=== PATIENT | male | born 1975 | race Hispanic/Latino ===

== ENCOUNTER 2022-09-19 15:17 | Emergency (ER) | payer SELFPAY ==
--- OUTSIDE RECORDS SUMMARY | 2022-09-19 15:21 | XMS REPORT | Continuity of Care Document ---
:1975 Author Organization [facility] t Address [address] [place] [address] Care Team Providers Name Role Phone Asked, No Pcp Primary Care Physician Unavailable Santo Stack Attending Clinician Unavailable ALVIN HAWK Attending Clinician Unavailable Referred, Self Admitting Clinician Unavailable Payers Payer Name Policy Type Policy Number Effective Date Expiration Date S ource Problems This patient has no known problems. Allergies, Adverse Reactions, Alerts Allergy Allergy Status Severity Reaction(s) Onset Inactive Treating Comm ents Source Name Type Date Date Clinician No Known DA Active [facility]ie 04-29 s 00:00: [address] Social History Social Habit Start Date Stop Date Quantity Comments Source Gender identity [facility] Sexual orientation Method [facility] Sex Assigned At [birth year] [facility] 00:00:00 00:00:00 Smoking Status Start Date Stop Date Source Tobacco smoking consumption unknown [facility] Medications This patient has no known medications. Immunizations Ordered Immunization Filled Immunization Date Status Commen ts Source Name Name PFIZER COVID-19 MRNA 2020-11-04 Completed [facility] od[facility] VACCINATION 00:00:00 Hospital PFIZER COVID-19 MRNA 2020-10-14 Completed Meth odist VACCINATION 00:00:00 Hospital Procedures This patient has no known procedures. Plan of Care Planned Activity Planned Date Details Comments Source Future Scheduled 2022-07-17 INFLUENZA VACCINE [facility] Test 17:29:22 [code = INFLUENZA VACCINE] Future Scheduled 2022-07-17 Screening for [facility] Test 17:29:22 malignant neoplasm of colon (procedure) [code = [id number]] Future Scheduled 2022-07-17 COVID-19 VACCINE (3 Meth [facility] Test 17:29:22 - Booster for Pfizer series) [code = COVID-19 VACCINE (3 - Booster for Pfizer series)] Encounters Start End Encounter Admission Attending Care Care Encounter Source Date/Time Date/Time Type Type Clinicians Facility Department ID 2021-04-29 2021-04-29 [facility] [id number] [facility] 10:27:00 11:40:[address] [facility] 2020-11-04 2020-11-04 Outpatient SEPTIMUS, [facility] [id number] [place] 00:00:00 00:00:00 ALVIN [address] 2020-10-14 2020-10-14 Outpatient [facility] [id number] [place] 00:00:00 00:00:[address] Results This patient has no known results. Notes Date/Time Note Provider Source 2021-04-29 11:01:00-00:00 [facility] EMERGENCY PROVIDER REPORT REPORT#:[id number] REPORT STATUS: Signed DATE:04/29/21 TIME: 1101 PATIENT: KEL BURT UNIT #: [id number] ROOM/BED: AGE: 45 SEX: M PCP PHYS: Self Referred SERVICE AUTHOR: Romulo Siddiqui LOCATION: [facility] * ALL edits or amendments must be made on the [employer]/computer document * Romulo Siddiqui 04/29/21 1101: HPI-Neck Pain Free Text HPI Notes Free Text HPI Notes 45-year-old male presents to emergency room with complaint of bilateral neck pain x1 week. Pain is worse when turning his head left to right was seen by an outpatient provider who pres cribed Flexeril, however patient states that he has little improvement with Flexeril. States that pr ior to onset, he was lifting heavy object and prior diagn osed with muscle spasm. Denies fever, chills, night sweats, nausea, vomiting, diarrhea, abdominal pa in, headache, dizziness, shortness of breath, dyspnea on exertion, chest pain, sore throat, ear pain, focal neurological deficits, dysuria, back pain, or numbness/tingling to extremities. General Confirmed Patient Yes Patient Type New patient Initial Greet Date/Time 04/29/21 1038 Presentation Chief Complaint Neck pain Hx Obtained From Patient Sudden in Onset? Yes Onset Occurred One week ago Symptom Duration Since onset Progression since Onset Constant Caused by No trauma by history Location Posterior neck Quality Cramping Severity: Current Pain level 6 out of 10 Context Immunization Status General All up to date Recent Healthcare No recent doctor visit, No rec ent hospitalization Risk-Neck Pain Risk Stratification High Risk for Injury Risk factors reviewed, No r isk factors Nexus C-Spine Criteria No: Post midline tenderness, Intoxicated, Altere d LOC/alertness, Focal neuro deficit pres, Distracting injury pres. Review of Systems ROS Statements All systems rev neg except as marked. Basic Review of Systems Basic ROS : No dysuria/jose quency, HEM: No bleeding/bruising, PSYCH: NL thought content Focused Review of Systems Musculoskeletal Reports: Neck pain. Past Medical History - Adult Stated Complaint MUSCLE SPASM Allergies Coded Allergies: No Known Allergies (04/29/21) Pt reports no significant: P ast surgical history, Family history, Social history Additional Medical History HTN Smoking status: Smoking status for patients 13 years old or old er: Unknown,if ever smoked Physical Exam Vital Signs Vital Signs First Documented: Result Date Time Pulse Ox 98 04/29 1037 B/P 114/86 04/29 1037 B/P Mean 95 04/29 1037 O2 Delivery Room air 04/29 1037 Temp 98.6 04/29 1037 Pulse 64 04/29 1037 Resp 18 04/29 1037 Last Documented: Result Date Time Pulse Ox 98 04/29 1037 B/P 114/86 04/29 1037 B/P Mean 95 04/29 1037 O2 Delivery Room air 04/29 1037 Temp 98.6 04/29 1037 Pulse 64 04/29 1037 Resp 18 04/29 1037 Review of Vital Signs Reviewed Basic Physical Exam Basic PE HEAD: Atraumatic/NC, EYES: PERRL, conj clear, ENT: Membranes moist, RESP: No resp distress, CV: Reg rate rhythm, ABD : Soft/non-tender, EXT: No gross abnormality, SKIN: No rashes, warm/dry, PS YCH: NL thought content Focused PE General/Const General/Const Awake, Alert MS Head Head Normocephalic Eyes Eyes PERRL Ears/Nose/Throat Ears/Nose/Throat Airway patent, Mucous membrane s moist, Pharynx NL MS Neck Neck/Muscle Tenderness Trapezius R, Trapezius L. Resp/Chest Respiratory/Chest Breath sounds NL, Breath soun ds = bilat, No respiratory distress, No rales, No rhonchi, No wheezing, No stridor Cardiovascular Cardiovascular Heart rate NL, Regular rhythm, H eart sounds NL, Peripheral circulation NL MS Back Back Inspection NL, Non-tender MS Upper Extrem Upper Extremity/MS Inspection NL, No swelling, Non-tender, No erythema, No deformity, Neurologic intact, Vascular intact Skin Skin Color NL, Warm, Dry, Turgor NL Neurologic Neurologic Oriented X3, Speech NL, No motor def icits, No sensory deficits, Reflexes equal bilat Interpretation Diagnostics Point of Care Testing Pulse Oximetry Pulse Ox % 98 On: Room air Interpretation Interpreted by me, Pulse oximetr y normal Time 1037 Re-Evaluation MDM Free Text MDM Notes Free Text MDM Notes 45-year-old male presents to emergency room with complaint of neck pain. Physical exam reveals neck spasms. Patient repor ts feeling better after administration of medication in ER today . Will provide symptom relief at home. No red flags associated with this pain. Patient strongly recommended to follow- up as an outpatient to the dedicated specialist. Patient is comfortable with and agrees with plan for discharge for o utpatient follow-up. Verbalizes intent to seek continued care on an outpatient basis with primary care provider as well as any recommended specialty. Educated on condit ions which warrant immediate medical attention or return to emergency room. N AD, VSS at time of discharge. A O x4. Ambulatory without deficit. All question s answered. ED Course Medication(s) Ordered Medication(s) Ordered: Central Nervous System Agents Sig/Stephanie Start time Last Medication Dose Route Stop Time Status Admin Diazepam 5 MG X1ED STA 04/29 1044 DC 04/29 IM 04/29 1045 1112 Ketorolac 60 MG X1ED STA 04/29 1044 DC 04/29 Tromethamine IM 04/29 1045 1112 Patient Discharge Departure Vital Signs/Condition Vital Signs First Documented: Result Date Time Pulse Ox 98 04/29 1037 B/P 114/86 04/29 1037 B/P Mean 95 04/29 1037 O2 Delivery Room air 04/29 1037 Temp 98.6 04/29 1037 Pulse 64 04/29 1037 Resp 18 04/29 1037 Last Documented: Result Date Time Pulse Ox 98 04/29 1037 B/P 114/86 04/29 1037 B/P Mean 95 04/29 1037 O2 Delivery Room air 04/29 1037 Temp 98.6 04/29 1037 Pulse 64 04/29 1037 Resp 18 04/29 1037 All vital signs available at the time of this en try have been reviewed. Condition Stable Clinical Impression Clinical Impression Primary Impression: Muscle spasms of neck Disposition Decision Discharge )( Discharged to Home Yes )( Time 1102 )( Date 04/29/21 Discharge/Care Plan Counseled Regarding Diagnosi s, Prescriptions, Need for follow-up, When to return to ED (Auto) Prescriptions Current Visit Scripts ORPHENADRINE ER (NORFLEX) 100 MG PO BID PRN PRN Muscle spasm ORPHENADRINE ER (NORFLEX) 100 MG PO BID PRN PRN Muscle spasm #30 TABS DICLOFENAC SODIUM ER (VOLTAREN) 75 MG PO BID PRN PRN Pain DICLOFENAC SODIUM ER (VOLTAREN) 75 MG PO BID P RN PRN Pain #30 TABS Prescriptions Reviewed Risks, Benefits Patient Instructions ED Muscle Spasm Referrals Soren Quesada MD Discharge Note I have spoken with the patie nt and/or caregivers. I have explained the patient's condition, diagnoses and marisol atment plan based on the information available to me at this time. I have answered the patient's and/ or caregiver's questions and addressed any concerns. The patient and/or careg kathrin have as good an understanding of the patient 's diagnosis, condition and treatment plan as can be expected at this point. The vital signs have bee n stable. The patient's condition is stable and appr opriate for discharge from the emergency department. The patient will pursue further outpatient evalu ation with the primary care physician or other designated or consulting phys ician as outlined in the discharge instructions. The patient and/or caregivers are agreeable to this plan of care and follow-up instructions have been exp lained in detail. The patient and/or caregivers have received these instructio ns in written format and have expressed an understanding of the discharge inst ructions. The patient and/or caregivers are aware that any significant change in condition or worsening of symptoms should prompt an immediate [facility] the closest emergency department or a call to 911. Santo Stack 04/29/21 1601: Patient Discharge Departure Supervising Physician Note RonakLv Saw Pt Alone I have reviewed the PA/CIGAR ROLLER's note and plan of car e. I was available for consultation as needed at al l times during the patient's visit in the emergency department. I agree with the clinical impression , plan and disposition. at 1444 at 1601 RPT #:[id number] END OF REPORT
[2022-09-19 16:12] LABS: Absolute Lymphocytes (CBC) 2.5 K/uL (0.7-4.9); Hematocrit 46.1 % (39.6-49.0); Lymphocytes % 22.6 % (15.3-44.8); MCV 82.8 fL (80-100); MPV 8.1 fL (7.6-11.3); RBC Red Blood Cell Count 5.57 M/uL (4.33-5.43)
[2022-09-19 16:16] LABS: Urine Bilirubin NEGATIVE (Negative); Urine Blood Negative (Negative); Urine Clarity Clear (Clear); Urine Color Light-Yellow (Yellow); Urine Glucose NEGATIVE (Negative); Urine Protein NEGATIVE (Negative); Urine Urobilinogen Normal (Normal); Urine pH 6.5 (5.0-7.0)
--- NOTE | 2022-09-19 16:24 | RAD REPORT ---
EXAM DESCRIPTION: RAD - Chest Single View - 09/19/2022 4:16 pm CLINICAL HISTORY: upper abdomen pain Chest pain. COMPARISON: No comparisons FINDINGS: Portable technique limits examination quality. The lungs are grossly clear. The heart is normal in size. No displaced fractures. IMPRESSION: No acute intrathoracic process suspected.
[2022-09-19 16:37] LABS: Albumin 3.9 g/dL (3.4-5.0); Bilirubin Total 0.4 mg/dL (0.2-1.0); Protein, Total 7.9 g/dL (6.4-8.2)
[2022-09-19 16:38] LABS: Potassium 3.9 mEq/L (3.5-5.1)
[2022-09-19] MEDS ORDERED: ONDANSETRON 4 MG/2 ML VIAL ONE (16:54)
[2022-09-19] MEDS ORDERED: NA CHLORIDE 0.9% 1,000 ML ONE (16:54)
[2022-09-19] MEDS ORDERED: MORPHINE 4 MG/ML SYR ONE (16:54)
[2022-09-19] MEDS ORDERED: FAMOTIDINE 20 MG/2 ML VIAL IV ONE (16:54)
--- NOTE | 2022-09-19 18:15 | RAD REPORT ---
EXAM DESCRIPTION: CTAbdomen Pelvis W Contrast - 09/19/2022 6:06 pm CLINICAL HISTORY: Abdominal pain. RUQ abdomen pain COMPARISON: No comparisons TECHNIQUE: Biphasic CT imaging of the abdomen and pelvis was performed with 100 ml non-ionic IV cont rast. All CT scans are performed using dose optimization technique as appropriate and may include automated exposure control or mA/KV adjustment according to patient size. FINDINGS: The lung bases are clear. The liver demonstrates mild fatty infiltration. Vague low-density lesions likely benign but incomplet characterized at this small size. Spleen, pancreas, adrenal glands and kidneys are within normal limits. No bowel obstruction, free air, free fluid or abscess. Moderate stool is present throughout the colon . The appendix is normal. No evidence of significant lymphadenopathy. No suspicious bony findings. IMPRESSION: Mild diffuse fatty liver is seen with small low-density lesions too small to fully barrie cterize but favored to be benign. Nonemergent MRI liver protocol would be helpful for further assessm ent. Moderate constipation.
--- NOTE | 2022-09-19 19:41 | RAD REPORT ---
EXAM DESCRIPTION: US - Abdomen Exam Limited - 09/19/2022 7:34 pm CLINICAL HISTORY: RUQ abdomen pain COMPARISON: No comparisons FINDINGS: The gallbladder demonstrates no gallstones. No pericholecystic fluid or gallbladder wall t hickening. The common bile duct is normal measuring 2 mm.. The liver demonstrates no findings of intrahepatic biliary dilatation. IMPRESSION: Unremarkable examination.
--- NOTE | 2022-09-19 20:20 | ER ---
Nurse's Notes [facility] Name: Paxton Rasmussen Age: 47 yrs Sex: Male : 1975 Arrival Date: 09/19/2022 Time: 15:17 Bed 3 Private MD: Diagnosis: Abdominal pain, unspecified;Dorsalgia, unspecified Presentation: 09/19 15:27 Chief complaint: Patient states: pain to RUQ and back with movement. aa5 15:27 Coronavirus screen: At this time, the client does not indicate any symptoms associated aa5 with coronavirus-19. Ebola Screen: Patient denies travel to an Ebola-affected area in the 21 days before illness onset. Initial Sepsis Screen: Does the patient meet any 2 criteria? No. Patient's initial sepsis screen is negative. Does the patient have a suspected source of infection? No. Patient's initial sepsis screen is negative. Risk Assessment: Do you want to hurt yourself or someone else? Patient reports no desire to harm self or others. Onset of symptoms was September 19, 2022. 15:27 Acuity: TERESITA 3 aa5 15:27 Method Of Arrival: Ambulatory aa5 Historical: - Allergies: 15:28 No Known Allergies; aa5 - Home Meds: 15:30 None [Active]; aa5 - PMHx: 15:30 None; aa5 - PSHx: 15:30 None; aa5 - Immunization history:: Adult Immunizations unknown. - Social history:: Smoking status: Patient/guardian denies using tobacco. Screenin:57 [facility] ED Fall Risk Assessment (Adult) History of falling in the last 3 months, nj1 including since admission No falls in past 3 months (0 pts) Confusion or Disorientation No (0 pts) Intoxicated or Sedated No (0 pts) Impaired Gait No (0 pts) Mobility Assist Device Used No (0 pt) Altered Elimination No (0 pt) Score/Fall Risk Level 0 - 2 = Low Risk Oriented to surroundings, Maintained a safe environment, Hourly rounding (assess needs \T\ fall precautionary measures) done. Abuse screen: Denies threats or abuse. Denies injuries from another. Nutritional screening: No deficits noted. Tuberculosis screening: No symptoms or risk factors identified. Assessment: 16:56 General: Appears in no apparent distress. uncomfortable, Behavior is calm, cooperative, nj1 appropriate for age. Pain: Complains of pain in abdomen Pain radiates to back Pain currently is 6 out of 10 on a pain scale. Pain began 2-3 days ago. Alleviated by When he moves head from side to side. Neuro: Level of Consciousness is awake, alert, obeys commands, Oriented to person, place, time, situation. Cardiovascular: Patient's skin is warm and dry. Respiratory: Airway is patent Respiratory effort is even, unlabored. 17:30 Reassessment: Patient appears in no apparent distress at this time. Patient and/or nj1 family updated on plan of care and expected duration. Pain level reassessed. Patient is alert, oriented x 3, equal unlabored respirations, skin warm/dry/pink. 17:39 Reassessment: RUBIO Owen notified of BP, no new orders at this time. hb 18:29 Reassessment: Patient appears in no apparent distress at this time. Patient and/or nj1 family updated on plan of care and expected duration. Pain level reassessed. Patient is alert, oriented x 3, equal unlabored respirations, skin warm/dry/pink. Vital Signs: 15:27 BP 168 / 105; Pulse 73; Resp 16 S; Temp 97.3(TE); Pulse Ox 100% on R/A; aa5 16:54 BP 173 / 100; Pulse 65; Resp 15; Pulse Ox 99% on R/A; Pain 6/10; hb 17:30 Pain 3/10; nj1 17:36 BP 175 / 107; Pulse 68; Resp 17; Pulse Ox 100% on R/A; hb 18:28 BP 149 / 105; Pulse 59; Resp 18; Pulse Ox 100% on R/A; Pain 3/10; nj1 16:54 Pain Scale: Adult hb 17:30 Pain Scale: Adult nj1 18:28 Pain Scale: Adult nj1 ED Course: 15:18 Patient arrived in ED. rg4 15:20 Brayden Cam PA is PHCP. cp 15:20 Brayden York MD is Attending Physician. cp 15:28 Arm band placed on. aa5 15:30 Triage completed. aa5 16:17 XRAY Chest (1 view) In Process Unspecified. EDMS 16:41 Flory Maurice, LATISHA is Primary Nurse. mb9 16:43 Marge Childers, RN is Primary Nurse. nj1 16:58 Patient has correct armband on for positive identification. Bed in low position. Call va1 light in reach. 16:58 Pulse ox on. NIBP on. nj1 16:58 Patient maintains SpO2 saturation greater than 95% on room air. nj1 18:08 CT Abd/Pelvis - IV Contrast Only In Process Unspecified. EDMS 19:36 US Abdomen Limited In Process Unspecified. EDMS 20:31 No provider procedures requiring assistance completed. Patient did not have IV access jb4 during this emergency room visit. Administered Medications: 16:51 Drug: Famotidine IVP 20 mg Route: IVP; Site: left antecubital; hb 16:52 Drug: NS 0.9% IV 1000 ml Route: IV; Rate: 1 bolus; Site: left antecubital; hb 16:52 Drug: Ondansetron IVP 4 mg Route: IVP; Site: left antecubital; hb 16:52 Drug: morphine IVP or IV 4 mg Route: IVP; Infused Over: 4 mins; Site: left antecubital; hb Outcome: 20:20 Discharge ordered by MD. cp 20:30 Discharged to home via wheelchair, with friend. jb4 20:30 Condition: stable 20:30 Discharge instructions given to patient, Instructed on discharge instructions, follow up and referral plans. no drinking with medication, no driving heavy equipment, medication usage, Demonstrated understanding of instructions, follow-up care, medications, Prescriptions given X 2. 20:31 Patient left the ED. jb4 Signatures: Dispatcher [employer] EDMS Kelsi Marlow RN RN aa5 Brayden Cam PA PA cp Baxter, Heather RN Mary Vasquez rg4 Chet Escobar RN RN jb4 Flory Maurice RN RN mb9 Marge Childers, RN RN nj1 Corrections: (The following items were deleted from the chart) 16:59 16:56 Pain: Complains of pain in abdomen Pain radiates to back Pain currently is 6 out nj1 of 10 on a pain scale. Pain began 2-3 days ago. nj1 18:30 18:28 Pulse 59bpm; Resp 18bpm; Pulse Ox 100% RA; nj1 nj1
--- NOTE | 2022-09-19 20:20 | EDPHYS ---
Physician Documentation [facility] Name: Paxton Rasmussen Age: 47 yrs Sex: Male : 1975 Arrival Date: 09/19/2022 Time: 15:17 Bed 3 Private MD: JEANE Physician Brayden York HPI: 09/19 15:55 This 47 yrs old Male presents to ER via Ambulatory with complaints of Back cp Pain, Abdominal Pain. 15:55 The patient presents with abdominal pain in the right upper quadrant. Onset: The cp symptoms/episode began/occurred 3 day(s) ago. The patient presents with pain that is acute, with no known mechanism of injury, radiating pain from right upper abdomen. The symptoms are located in the right mid back. Associated signs and symptoms: Pertinent negatives: chest pain, constipation, dysuria, fever, hematuria, numbness, vomiting, weakness, diarrhea. Historical: - Allergies: 15:28 No Known Allergies; aa5 - Home Meds: 15:30 None [Active]; aa5 - PMHx: 15:30 None; aa5 - PSHx: 15:30 None; aa5 - Immunization history:: Adult Immunizations unknown. - Social history:: Smoking status: Patient/guardian denies using tobacco. ROS: 16:00 Constitutional: Negative for body aches, chills, fever, poor PO intake. cp 16:00 Cardiovascular: Negative for chest pain, edema, palpitations. cp 16:00 Eyes: Negative for injury, pain, redness, and discharge. cp 16:00 ENT: Negative for drainage from ear(s), ear pain, sore throat, difficulty swallowing, difficulty handling secretions. 16:00 Respiratory: Negative for cough, shortness of breath, wheezing. 16:00 Abdomen/GI: Positive for abdominal pain, of the right upper quadrant, Negative for vomiting, diarrhea, constipation, black/tarry stool, rectal bleeding. 16:00 Back: Positive for pain at rest, pain with movement, of the right mid back, Negative for injury or acute deformity, decreased range of motion. 16:00 : Positive for flank pain, Negative for urinary symptoms, testicular pain 16:00 Skin: Negative for cellulitis, rash. 16:00 Neuro: Negative for altered mental status, dizziness, headache, numbness, syncope, weakness. 16:00 All other systems are negative. Exam: 16:05 Constitutional: The patient appears in no acute distress, alert, awake, cp non-diaphoretic, non-toxic, well developed, well nourished, uncomfortable. 16:05 Head/Face: Normocephalic, atraumatic. cp 16:05 Eyes: Periorbital structures: appear normal, Conjunctiva: normal, no exudate, no injection, Sclera: no appreciated abnormality, Lids and lashes: appear normal, bilaterally. 16:05 ENT: External ear(s): are unremarkable, Nose: is normal, Mouth: Lips: moist, Oral mucosa: pink and intact, moist, Posterior pharynx: is normal, airway is patent, no erythema, no exudate. 16:05 Chest/axilla: Inspection: normal. 16:05 Cardiovascular: Rate: normal, Rhythm: regular, Edema: is not appreciated, JVD: is not appreciated. 16:05 Respiratory: the patient does not display signs of respiratory distress, Respirations: normal, no use of accessory muscles, no retractions, labored breathing, is not present, Breath sounds: are clear throughout, no decreased breath sounds, no stridor, no wheezing. 16:05 Abdomen/GI: Inspection: obese Bowel sounds: active, all quadrants, Palpation: soft, in all quadrants, moderate abdominal tenderness, in the anterior aspect of right lateral abdomen, posterior aspect of right lateral abdomen and right upper quadrant, rebound tenderness, is not appreciated, voluntary guarding, is elicited in the anterior aspect of right lateral abdomen, posterior aspect of right lateral abdomen and right upper quadrant. 16:05 Back: pain, that is moderate, of the right mid back, ROM is normal. 16:05 Skin: cellulitis, is not appreciated, no rash present. 16:05 Neuro: Orientation: to person, place \T\ time. Mentation: is normal, Motor: moves all fours, strength is normal, Gait: is steady. Vital Signs: 15:27 BP 168 / 105; Pulse 73; Resp 16 S; Temp 97.3(TE); Pulse Ox 100% on R/A; aa5 16:54 BP 173 / 100; Pulse 65; Resp 15; Pulse Ox 99% on R/A; Pain 6/10; hb 17:30 Pain 3/10; nj1 17:36 BP 175 / 107; Pulse 68; Resp 17; Pulse Ox 100% on R/A; hb 18:28 BP 149 / 105; Pulse 59; Resp 18; Pulse Ox 100% on R/A; Pain 3/10; nj1 16:54 Pain Scale: Adult hb 17:30 Pain Scale: Adult nj1 18:28 Pain Scale: Adult nj1 MDM: 15:40 Patient medically screened. 20:20 Data reviewed: vital signs, nurses notes, lab test result(s), radiologic studies, CT cp scan. 20:20 I considered the following discharge prescriptions or medication management in the emergency department Medications were administered in the Emergency Department. See MAR. Counseling: I had a detailed discussion with the patient and/or guardian regarding: the historical points, exam findings, and any diagnostic results supporting the discharge/admit diagnosis, lab results, radiology results, to return to the emergency department if symptoms worsen or persist or if there are any questions or concerns that arise at home. Response to treatment: the patient's symptoms have markedly improved after treatment, and as a result, I will discharge patient. Special discussion: Based on the patient's Hx, exam, and Dx evaluation, there is no indication for emergent surgery or inpatient Tx. It is understood by the patient/guardian that if the Sx's persist or worsen they need to return immediately for re-evaluation. 09/19 15:57 Order name: CBC with Diff; Complete Time: 16:41 09/19 16:41 Interpretation: Normal except: WBC 11.30; RBC 5.57; EOSINOPHIL % 5.9; EOSA 0.7. 09/19 15:57 Order name: CMP; Complete Time: 16:41 09/19 16:41 Interpretation: Normal except: GLUC 108; GFR 79; AST 38; GLOB 4.0; A/G 1.0. 09/19 15:57 Order name: Lipase; Complete Time: 16:41 09/19 16:41 Interpretation: Abnormal: LIP 80. 09/19 15:57 Order name: Urinalysis w/ reflexes; Complete Time: 16:41 09/19 15:57 Order name: CT Abd/Pelvis - IV Contrast Only; Complete Time: 18:24 09/19 15:57 Order name: XRAY Chest (1 view); Complete Time: 16:41 09/19 18:25 Order name: US Abdomen Limited; Complete Time: 20:08 cp 09/19 20:08 Interpretation: Report reviewed. cp 09/19 15:57 Order name: IV Saline Lock; Complete Time: 16:52 cp 09/19 15:57 Order name: Labs collected and sent; Complete Time: 16:52 cp Administered Medications: 16:51 Drug: Famotidine IVP 20 mg Route: IVP; Site: left antecubital; hb 16:52 Drug: NS 0.9% IV 1000 ml Route: IV; Rate: 1 bolus; Site: left antecubital; hb 16:52 Drug: Ondansetron IVP 4 mg Route: IVP; Site: left antecubital; hb 16:52 Drug: morphine IVP or IV 4 mg Route: IVP; Infused Over: 4 mins; Site: left antecubital; hb Disposition Summary: 09/19/22 20:20 Discharge Ordered Location: Home cp Problem: new cp Symptoms: have improved cp Condition: Stable cp Diagnosis - Abdominal pain, unspecified cp - Dorsalgia, unspecified cp Followup: cp - With: Private Physician - When: 2 - 3 days - Reason: Recheck today's complaints Discharge Instructions: - Discharge Summary Sheet cp - Abdominal Pain, Adult cp - Acute Back Pain, Adult cp - Form - Excuse from Work, School, or Physical Activity cp Forms: - Medication Reconciliation Form cp - Thank You Letter cp - Antibiotic Education cp - Prescription Opioid Use cp - Work release form [id number] Prescriptions: - Ibuprofen 800 mg Oral Tablet - take 1 tablet by ORAL route every 8 hours As needed take with food; 30 tablet; cp Refills: 0, Product Selection Permitted - Cyclobenzaprine 10 mg Oral Tablet - take 1 tablet by ORAL route every 8 hours As needed; 30 tablet; Refills: 0, cp Product Selection Permitted Signatures: [facility] Kelsi Sherwood RN RN aa5 Brayden Cam PA PA Lary Yeboah, RN RN
[2022-09-19 20:48] VITALS: TEMP 97.3
[2022-09-19 20:51] VITALS: O2SAT 100
[2022-09-19 20:53] VITALS: BP 149/105
== END 2022-09-19 20:31 | disposition home or self-care (01) ==
LOC: ER 15:17
DX: R10.11 Right upper quadrant pain (principal); M54.9 Dorsalgia, unspecified
CPT/HCPCS: 36415; 71045; 74177; 76705; 80053; 81003; 83690; 85025; 96374; 96375; 99285; J2405; J7030; Q9967